=== PATIENT | female | born 1965 | race Caucasian/White ===

== ENCOUNTER → 2023-01-08 | Outpatient (CLI) | payer BC, SELFPAY ==
[2023-01-08 10:33] LABS: Absolute Lymphocyte Count 1.52 X10^3/uL (0.83-4.51); Basophil# 0.04 X10^3/uL; Eosinophil# 0.12 X10^3/uL; Eosinophils% 2.9 % (0-5); Hematocrit 42.6 % (37-47); Hemoglobin 14.1 g/dL (12.0-15.0); Lymphocyte # 1.52 X10^3/ul (0.83-4.51); Lymphocyte % 36.7 % (19-41); Mean Corp Hgb Conc 33.1 g/dL (32-36); Mean Corpuscular Hgb 32.4 pg (27.0-32.0); Mean Corpuscular Volume 97.9 fL (81-99); Monocyte# 0.42 X10^3/uL; Monocyte% 10.1 % (0-10); NRBC Flagged by Analyzer 0 % (0-5); Neutrophil # 2.03 X10^3/uL (2.7-7.7); Neutrophil % 49.1 % (47-70); Platelet Count 217 K/mm3 (150-450); RBC Distribution Width SD 43.6 fl (35.1-43.9); Red Blood Count 4.35 M/mm3 (4.2-5.4); White Blood Count 4.1 K/mm3 (4.4-11.0)
[2023-01-08 11:03] LABS: Vitamin D,25 Hydroxy 50.1 ng/mL
[2023-01-08 11:48] LABS: ALB/GLOB Ratio 1.1 RATIO (0.9-2.4); AST(SGOT) 20 U/L (15-37); Alanine Aminotransfer ALT/SGPT 25 U/L (13-56); Albumin, Serum 3.7 g/dL (3.2-5.0); Alkaline Phosphatase 74 U/L (45-117); Anion Gap 6 (5-15); BUN 12 mg/dL (7-18); BUN/Creat Ratio 15.5 RATIO (10-20); Chloride 109 mmol/L (98-107); Cholesterol 199 mg/dL (200); Creatinine, Serum 0.78 mg/dL (0.55-1.02); EST Glomerular Filtration Rate 81 mL/min (>60); Est Glom Filt Rate - Afr Amer 98 mL/min (>60); Globulin 3.4 g/dL (2.2-4.2); Glucose 88 mg/dL (74-106); High Density Lipoprotein 70 mg/dL; Magnesium 2.2 mg/dL (1.6-2.6); Potassium 3.9 mmol/L (3.5-5.1); Protein, Total 7.1 g/dL (6.4-8.2); Sodium Level 139 mmol/L (136-145); Thyroid Stim Hormone (TSH) 2.54 uIU/mL (0.358-3.74); Triglycerides 52 mg/dL; Very Low Density Lipoprotein 10 mg/dL (5-40)
== END | disposition home or self-care (01) ==
LOC: MFPLAB 08:10
PROVIDERS: PCP Family Medicine; Visit Provider Family Medicine
DX: I49.3 Ventricular premature depolarization (principal); I73.9 Peripheral vascular disease, unspecified; M85.80 Other specified disorders of bone density and structure, unspecified site
CPT/HCPCS: 36415; 80053; 80061; 82306; 83735; 84443; 85025

== ENCOUNTER → 2023-01-16 | Outpatient (CLI) | payer BC, SELFPAY ==
--- NOTE | 2023-01-16 08:50 | ART_ITS ---
Reason For Study: PVD Procedure A bilateral lower extremity continuous wave Doppler with analog waveform analysis,segmental pressures,and ankle brachial indexes without exercise. Left Segmental Pressures Left brachial= 117mmHg. Left posterior tibial artery = 141mmHg. Left dorsalis pedis artery = 140mmHg. The left posterior tibial artery waveforms are triphasic. The left dorsalis pedis waveforms are triphasic. Right Segmental Pressures Right brachial= 114mmHg. Right posterior tibial artery = 138mmHg. Right dorsalis pedis artery = 140mmHg. The right posterior tibial artery waveforms are triphasic. The right dorsalis pedis waveforms are triphasic. Indices The right resting ankle brachial index is 1.20. The right ankle brachial index by the posterior tibial artery is 1.18. The right ankle brachial index by the dorsalis pedis is 1.20. The left resting ankle brachial index is 1.21. The left ankle brachial index by the posterior tibial artery is 1.21. The left ankle brachial index by the dorsalis pedis is 1.20. VL/Lower Ext Art Exam w/o Exercis Interpretation Summary Right ALICJA 1.2, normal. Doppler/PVR waveforms of the right leg normal at rest. Left ALICJA 1.21, normal. Doppler/PVR waveforms of the left leg normal at rest. Ordering Physician: Mahnaz Maxwell Referring Physician: MAHNAZ MAXWELL MD Performed By: Meghan Guzman RVT, RDCS
== END | disposition home or self-care (01) ==
PROVIDERS: PCP Family Medicine; Referring Provider Family Medicine; Visit Provider Family Medicine
DX: I73.9 Peripheral vascular disease, unspecified (principal)
CPT/HCPCS: 93923

== ENCOUNTER → 2023-07-24 | Outpatient (CLI) | payer BC, SELFPAY ==
--- NOTE | 2023-07-24 09:41 | BI_ITS ---
MAMMOGRAPHY - BILATERAL SCREENING REASON FOR EXAM: Female, 58 years old. Routine annual screening examination. PERTINENT HISTORY: Non-contributory. TECHNIQUE: Digital bilateral breast tanesha (3D mammographic acquisition) in the CC and MLO projections. 2-D mediolateral oblique (MLO) and craniocaudad (CC) views of both breasts were obtained. CAD: Full Field Digital Mammography with Computer Added Detection was performed. COMPARISON: None. Baseline examination. FINDINGS: Breast Composition: There are scattered areas of fibroglandular density. There are no dominant masses or suspicious calcifications. Small benign appearing bilateral axillary nodes. No other significant abnormalities are identified. BI/SCRN MAMM (CAD)W/TANESHA BILAT IMPRESSION: Negative screening mammogram. Yearly followup mammogram recommended. (A) ASSESSMENT CATEGORY: BIRADS Category 2: Benign. A letter regarding these results will be sent to the patient by the facility within 30 days. Approximately 10% of breast cancers are not detected by mammography. A normal mammogram should not delay biopsy of a clinically suspicious abnormality. [id number] Electronically Signed: Han Alvarez MD at 10:37 EST ,
--- OUTSIDE RECORDS SUMMARY | 2023-07-24 10:18 | XMS RPT_ITS | CCD ---
Author Name Unknown Address [address] [place] [address] Organization [facility] Care Team Providers Care Box Feeder Name Role Phone Unavailable Primary Care Provider TOLU Clark Referring Unavailable TOLU IRAHETA Attending Unavailable Allergies Allergy Classification Reported Allergen(s) Allergy Type Date of Onset Reaction(s) Facility (3 sources) HMG-CoA reductase inhibitor; Translations: [[id number] REDUCTASE INHIBITORS] Drug Intolerance Myalgia [facility] Work Phone: Medications Current Medications Medication Drug Class(es) Dates Sig (Normalized) Sig (Original) nebivolol 2.5 mg oral tablet (3 sources) Start: 11-10-2022 End: 02-08-2023 take 1 tablet by mouth once daily nebivolol (BYSTOLIC) 2.5 mg tablet Take 1 tablet by mouth once daily. 90 tablet 3 11/10/2022 02/08/2023 Active Completed/Discontinued Medications Medication Drug Class(es) Dates Sig (Normalized) Sig (Original) calcium phosphate dibas/vit D3 (VITAMIN D, WITH CALCIUM, ORAL) (2 sources) calcium phosphat e dibas/vit D3 (VITAMIN D, WITH CALCIUM, ORAL) Take by mouth. 0 Active Problems Problem Classification Problem Date Documented Date Episodic/Chronic Cardiac dysrhythmias (3 sources) Multiple premature ventricular complexes; Translations: [Ventricular premature depolarization] Onset: 11-10-2022 Chronic Other screening for suspected conditions (not mental disorders or infectious disease) (4 sources) Patient encounter status; Translations: [Encounter for screening for cardiovascular disorders] Onset: 11-10-2022 Episodic Results Test Name Value Interpretation Reference Range Facil ity Vital Signs Date Time Vital Sign Value Performing Clinician Faci lity 11-10-2022 09:27-0400 Body height 167.6 cm Tolu Iraheta MD Work Phone: [facility] 11-10-2022 09:27040 Body weight 65.05 kg Tolu Iraheta MD Work Phone: [facility] 11-10-2022 09:27-0400 Diastolic blood pressure 70 mm[Hg] Tolu Iraheta MD Work Phone: [facility] 11-10-2022 09:27-0400 Systolic blood pressure 110 mm[Hg] Tolu Iraheta MD Work Phone: [facility] Encounters Encounter Date Encounter Type Care Provider Facility Start: 12-25-2022 Refill Tolu Iraheta MD Work Phone: Cardiology Plan of Treatment Date Care Activity Detail Author Start: 07-27-2022 DEPRESSION ASSESSMENT DEPRESSION ASSESSMENT [facility] Start: 12-21-2021 COVID-19 VACCINE (5 - Booster for Pfizer series) COVID-19 VACCINE (5 - Booster for Pfizer series) [facility] Start: 2013 SHINGRIX VACCINE (1 of 2) SHINGRIX VACCINE (1 of 2) [facility] Start: 2008 COLOGUARD (FIT-DNA) COLOGUARD (FIT-DNA) [facility] Start: 2008 Colonoscopy COLONOSCOPY [facility] Start: 2008 COLORECTAL CANCER SCREENING COLORECTAL CANCER SCREENING [facility] Start: [address] COLONOGRAPHY [facility] Start: 2008 DIABETES SCREEN DIABETES SCREEN [facility] Start: 2008 FECAL OCCULT BLOOD FECAL OCCULT BLOOD [facility] Start: 2008 LIPID SCREEN LIPID SCREEN [facility] Start: 2008 SIGMOIDOSCOPY SIGMOIDOSCOPY [facility] Start: 2003 Mammography MAMMOGRAM [facility] Start: 1993 HPV TESTING HPV TESTING [facility] Start: 1984 PAP TESTING PAP TESTING [facility] Start: 1982 Urine microalbumin profile DTAP,TDAP,TD (1 - Tdap) [facility] Start: 1981 HEPATITIS C SCREENING HEPATITIS C SCREENING [facility] Start: 1981 HIV SCREENING HIV SCREENING [facility] End: 11-06-2023 ECG COMPLETE ECG COMPLETE ECG Routine Screening for ischemic heart disease 1 Occurrences starting 11/05/2022 until 11/06/2023 [facility] Work Phone: Payers Date Payer Category Payer Unknown [employer] PPO OOS [id number] 2022-Present [phone] [address] [place] [address] PPO [id number] 2022 Unknown [id number] Social History Date Type Detail Facility Start: 11-10-2022 Tobacco smoking stat us [facility] Never smoked tobacco [facility] Start: 11-10-2022 Tobacco use and exposure Smoke less tobacco non-user [facility] Start: 11-10-2022 Alcohol intake Current drinke r of alcohol (finding) [facility] Start: 11-10-2022 Alcohol intake [facility] Start: 11-10-2022 Alcohol Comment 4 drinks/week [facility] Start: 1965 Sex Assigned At Not on file [facility] Note 01-01-2023 Telephone Encounter - Karla Pozo - 01/01/2023 11:09 AM EDTTelephone Encounter - Elda Cespedes Pss - 01/01/2023 10:41 AM EDTTelephone Encounter - Opal Moore LPN - 12/25/2022 2:42 PM EDT Note Date & Type Note Facility 01-01-2023 Miscellaneous Notes Formattin g of this note might be different from the original. Call to [facility]. They have refills on file from 11/10 rx that was escripted. They have it documented that she refilled 11/21 for 90 day supply. Left detailed voicemail to let pt know that refill available at [facility]. She is to contact pharmacy with any questions. Karla Pozo Patient calling to check status of medication below. Please advise and call patient. Patient's request for medication is as follows: Requested Prescriptions Refused Prescriptions Disp Refills nebivolol (BYSTOLIC) 2.5 mg tablet 90 tablet 3 Sig: Take 1 tablet by mouth once daily. Sent 11/10/2022 90 tabs 3 refills to [facility] pharmacy Prescription(s) as above. Please process accordingly. Opal Moore LPN documented in this encounter [facility] Progress note 11-10-2022 Note Date & Type Note Facility 11-10-2022 Note HNO ID: [id number] Author: Tolu Iraheta MD Service: ? Author Type: Physician Type: Progress Notes Filed: 11/10/2022 9:57 AM Note Text: Tolu Iraheta MD Interventional Cardiology [address] [address] [phone] Chief Complaint Patient presents with: New Patient HISTORY OF PRESENT ILLNESS: Ms. Lacy is a 57 year old female seen in my office today for assessment management of premature ventricular ectopics patient had prior history of palpitation for about 10 years she has extensive work-up with a stress test echo in [place] she moved in to [facility] patient had occasional feeling of premature ventricular ectopic she is not bothered with it she is able to carry on normal physical activity with no limitation EKG today shows premature ventricular ectopics Maintain on Bystolic for many years and responded well to the medication No angina No symptoms or signs of congestive heart failure Cardiac Risk Factors age (male over 45, female over 55), family history of CAD PAST MEDICAL HISTORY Diagnosis Date PVC (premature ventricular contraction) PAST SURGICAL HISTORY Procedure Laterality Date DELIVERY ONLY 1990 PAST SURGICAL HISTORY OF wisdom teeth PAST SURGICAL HISTORY OF surgery to remove scar tissue from tailbone at age 16 PAST SURGICAL HISTORY OF 2002 endometrial tumor removed PAST SURGICAL HISTORY OF Bilateral 2020 eye surgery TOTAL ABD HYSTERECTOMY+BLAD REPR 2006 FAMILY HISTORY Problem Relation Age of Onset Hypertension Mother other (TAVR) Mother Ischemic Heart Disease Father other (bypass) Father Hypertension Sister Hypertension Sister Hypertension Brother Alcohol abuse Brother Hypertension Brother Hypertension Brother Social History Tobacco Use Smoking status: Never Smokeless tobacco: Never Vaping Use Vaping Use: Never used Substance Use Topics Alcohol use: Yes Alcohol/week: 4.0 standard drinks Types: 4 Glasses of wine per week Comment: 4 drinks/week Drug use: Never ALLERGIES Allergen Reactions Ndzrxpl-Tqx-Ctf Red* Myalgia Medications: Current Outpatient Medications Medication Sig Dispense Refill ibuprofen (ADVIL) 200 mg tablet Take 200 mg by mouth every 6 hours as needed. Multivitamin capsule Take 1 capsule by mouth once daily. calcium phosphate dibas/vit D3 (VITAMIN D, WITH CALCIUM, ORAL) Take by mouth. Flaxseed Oil oil nebivolol (BYSTOLIC) 2.5 mg tablet Take 1 tablet by mouth once daily. 90 tablet 3 No current facility-administered medications for this visit. Review of Systems Constitutional: Negative for chills, diaphoresis, fever, malaise/fatigue and weight loss. HENT: Negative for congestion, ear discharge, ear pain, hearing loss, nosebleeds, sinus pain, sore throat and tinnitus. Eyes: Negative for blurred vision, double vision, photophobia, pain, discharge and redness. Respiratory: Negative for cough, hemoptysis, sputum production, shortness of breath, wheezing and stridor. Cardiovascular: Negative for chest pain, palpitations, orthopnea, claudication, leg swelling and PND. Gastrointestinal: Negative for abdominal pain, blood in stool, constipation, diarrhea, heartburn, melena, nausea and vomiting. Genitourinary: Negative for dysuria, flank pain, frequency, hematuria and urgency. Musculoskeletal: Negative for back pain, falls, joint pain, myalgias and neck pain. Skin: Negative for itching and rash. Neurological: Negative for dizziness, tingling, tremors, sensory change, speech change, focal weakness, seizures, loss of consciousness, weakness and headaches. Endo/Heme/Allergies: Negative for environmental allergies and polydipsia. Does not bruise/bleed easily. Psychiatric/Behavioral: Negative for depression, hallucinations, memory loss, substance abuse and suicidal ideas. The patient is not nervous/anxious and does not have insomnia. Physical Examination: Vitals:BP 110/70 Ht 5' 6 (1.68m) Wt 143 lb 6.4 oz (65.0kg) BMI 23.16 kg/(m2). BP w/Orthostatic Vitals Date and Time Orthostatic BP Orthostatic Pulse BP Pulse BP Position BP Site BP Cuff Size 11/10/22 0927 -- -- 110/70 -- -- -- -- Last 2 Encounter Wt Readings: Date: Wt: 11/10/2022 65 kg (143 lb 6.4 oz) Physical Exam Constitutional: General: She is not in acute distress. Appearance: She is not diaphoretic. HENT: Head: Normocephalic and atraumatic. Right Ear: External ear normal. Left Ear: External ear normal. Nose: Nose normal. Mouth/Throat: Pharynx: Oropharynx is clear. Eyes: General: Right eye: No discharge. Left eye: No discharge. Conjunctiva/sclera: Conjunctivae normal. Pupils: Pupils are equal, round, and reactive to light. Cardiovascular: Rate and Rhythm: Normal rate and regular rhythm. Heart sounds: Normal heart sounds, S1 normal and S2 normal. No murmur heard. No friction rub. No gallop. No S3 or S4 sounds. Pu (more content not included)... [facility] History of Present illness Narrative 11-10-2022 Tolu Iraheta MD - 11/10/2022 9:53 AM EDT Note Date & Type Note Facility 11-10-2022 History of Presen t illness Narrative Images from the original note were not included. Tlou Iraheta MD Interventional Cardiology [facility] [address], [place] [address] [phone] Chief Complaint Patient presents with: New Patient HISTORY OF PRESENT ILLNESS: Ms. Lacy is a 57 year old female seen in my office today for assessment management of premature ventricular ectopics patient had prior history of palpitation for about 10 years she has extensive work-up with a stress test echo in [place] she moved in to [facility] patient had occasional feeling of premature ventricular ectopic she is not bothered with it she is able to carry on normal physical activity with no limitation EKG today shows premature ventricular ectopics Maintain on Bystolic for many years and responded well to the medication No angina No symptoms or signs of congestive heart failure Cardiac Risk Factors age (male over 45, female over 55), family history of CAD PAST MEDICAL HISTORY Diagnosis Date PVC (premature ventricular contraction) PAST SURGICAL HISTORY Procedure Laterality Date DELIVERY ONLY 1990 PAST SURGICAL HISTORY OF wisdom teeth PAST SURGICAL HISTORY OF surgery to remove scar tissue from tailbone at age 16 PAST SURGICAL HISTORY OF 2002 endometrial tumor removed PAST SURGICAL HISTORY OF Bilateral 2020 eye surgery TOTAL ABD HYSTERECTOMY+BLAD REPR 2006 FAMILY HISTORY Problem Relation Age of Onset Hypertension Mother other (TAVR) Mother Ischemic Heart Disease Father other (bypass) Father Hypertension Sister Hypertension Sister Hypertension Brother Alcohol abuse Brother Hypertension Brother Hypertension Brother Social History Tobacco Use Smoking status: Never Smokeless tobacco: Never Vaping Use Vaping Use: Never used Substance Use Topics Alcohol use: Yes Alcohol/week: 4.0 standard drinks Types: 4 Glasses of wine per week Comment: 4 drinks/week Drug use: Never ALLERGIES Allergen Reactions Ejpdgij-Ggz-Poj Red* Myalgia Medications: Current Outpatient Medications Medication Sig Dispense Refill ibuprofen (ADVIL) 200 mg tablet Take 200 mg by mouth every 6 hours as needed. Multivitamin capsule Take 1 capsule by mouth once daily. calcium phosphate dibas/vit D3 (VITAMIN D, WITH CALCIUM, ORAL) Take by mouth. Flaxseed Oil oil nebivolol (BYSTOLIC) 2.5 mg tablet Take 1 tablet by mouth once daily. 90 tablet 3 No current facility-administered medications for this visit. Review of Systems Constitutional: Negative for chills, diaphoresis, fever, malaise/fatigue and weight loss. HENT: Negative for congestion, ear discharge, ear pain, hearing loss, nosebleeds, sinus pain, sore throat and tinnitus. Eyes: Negative for blurred vision, double vision, photophobia, pain, discharge and redness. Respiratory: Negative for cough, hemoptysis, sputum production, shortness of breath, wheezing and stridor. Cardiovascular: Negative for chest pain, palpitations, orthopnea, claudication, leg swelling and PND. Gastrointestinal: Negative for abdominal pain, blood in stool, constipation, diarrhea, heartburn, melena, nausea and vomiting. Genitourinary: Negative for dysuria, flank pain, frequency, hematuria and urgency. Musculoskeletal: Negative for back pain, falls, joint pain, myalgias and neck pain. Skin: Negative for itching and rash. Neurological: Negative for dizziness, tingling, tremors, sensory change, speech change, focal weakness, seizures, loss of consciousness, weakness and headaches. Endo/Heme/Allergies: Negative for environmental allergies and polydipsia. Does not bruise/bleed easily. Psychiatric/Behavioral: Negative for depression, hallucinations, memory loss, substance abuse and suicidal ideas. The patient is not nervous/anxious and does not have insomnia. Physical Examination: Vitals:BP 110/70 Ht 5' 6 (1.68m) Wt 143 lb 6.4 oz (65.0kg) BMI 23.16 kg/(m^2). BP w/Orthostatic Vitals Date and Time Orthostatic BP Orthostatic Pulse BP Pulse BP Position BP Site BP Cuff Size 11/10/22 0927 -- -- 110/70 -- -- -- -- Last 2 Encounter Wt Readings: Date: Wt: 11/10/2022 65 kg (143 lb 6.4 oz) Physical Exam Constitutional: General: She is not in acute distress. Appearance: She is not diaphoretic. HENT: Head: Normocephalic and atraumatic. Right Ear: External ear normal. Left Ear: External ear normal. Nose: Nose normal. Mouth/Throat: Pharynx: Oropharynx is clear. Eyes: General: Right eye: No discharge. Left eye: No discharge. Conjunctiva/sclera: Conjunctivae normal. Pupils: Pupils are equal, round, and reactive to light. Cardiovascular: Rate and Rhythm: Normal rate and regular rhythm. Heart sounds: Normal heart sounds, S1 normal and S2 normal. No murmur heard. No friction rub. No gallop. No S3 or S4 sounds. Pulmonary: Effort: Pulmonary effort is normal. No respiratory distress. Breath sounds: Normal breath sounds. No wheezing or rales. Chest: Chest wall: No tenderness. Musculoskeletal: General: Normal range of motion. Cervical back: Normal range of motion and neck supple. Skin: General: Skin is warm and dry. Neurological: Mental Status: She is alert and oriented to person, place, and time. Psychiatric: Mood and Affect: Mood normal. Thought Content: Thought content normal. Pertinent Labs: CBC: No results found for: HB, HCT, WBC, PLT BMP: No results found for: GLUC, K, NA, CHLOR, CO2, CREAT, BUN, ANION, CA INR: Lipid Profile: No results found for: CHOL, HDL, LDL, TG Hemoglobin A1C: No results found for: HGBA1C TSH: No results found for: TSHREFL Prior Cardiac Testing ekg Assessment and Plan: 57 years old female patient with premature ventricular ectopics Premature ventricular ectopic Controlled with beta-blockers Continue beta-stephen 2. Hyperlipidemia Need lipid profile Patient had severe myalgia with Crestor's in the past Follow up planning: One year Electronically signed by Tolu Iraheta MD on November 10, 2022, 9:54 AM The above note was partially created using a dictation recognition software. A reasonable attempt has been made to correct any errors. documented in this encounter [facility] Evaluation note Note Date & Type Note Facility documented in this encounter [facility] Reason for referral (narrative) Outpatient Procedure (Routine) - Closed Note Date & Type Note Facility Referral ID Status Reason Start Date Expiration Date V isits Requested Visits Authorized [id number] Closed Auto-Generate d Referral 11/05/2022 07/26/2023 1 1 [facility] Summary Purpose Family History No Family History Records Found Advance Directives No Advanced Directives Records Found Additional Source Comments Source Comments (unrecognize d section and content) In the event this informatio n is protected by the Federal Confidentiality of Alcohol and Drug Abuse Patient Records regulations: The Federal rules restrict any use of the information to criminally investigate or prosecute any alcohol or drug abuse patient.[facility] the event this information is protected by the Federal Confidentiality of Alcohol and Drug Abuse Patient Records regulations: The Federal rules restrict any use of the information to criminally investigate or prosecute any alcohol or drug abuse patient.[facility] Reason for Visit (unrecogniz ed section and content) Reason Onset Date Comments Refill Request 12/25/2022 Refill Request 01/01/2023 INFORMATION SOURCE (unrecogn ized section and content) FOR RECORDS PERTAINING TO PATIENTS WHO ARE OR HAVE BEEN ENROLLED IN A CHEMICAL DEPENDENCY/SUBSTANCEABUSE PROGRAM, SOME INFORMATION MAY BE OMITTED. This clinical summary was aggregated from multiple sources. Caution should be exercised in using it in the provision of clinical care. This summary normalizes information from multiple sources, and as a consequence, information in this document may materially change the coding, format and clinical context of patient data. In addition, data may be omitted in some cases. CLINICAL DECISIONS SHOULD BE BASED ON THE PRIMARY CLINICAL RECORDS. [employer] provides no warranty or guarantee of the accuracy or completeness of information in this document.
== END | disposition home or self-care (01) ==
LOC: OPBI 09:40
PROVIDERS: PCP Family Medicine; Referring Provider Nurse Practitioner Family; Visit Provider Nurse Practitioner Family
DX: Z12.31 Encounter for screening mammogram for malignant neoplasm of breast (principal)
CPT/HCPCS: 77063; 77067

== ENCOUNTER → 2024-08-03 | Outpatient (CLI) | payer BC, SELFPAY ==
[2024-08-03 18:10] LABS: Absolute Lymphocyte Count 1.73 X10^3/uL (0.83-4.51); Absolute Neutrophil Count 3.7 X10^3/uL (2.0-7.7); Basophil# 0.05 X10^3/uL; Basophil% 0.8 % (0-1); Eosinophil# 0.09 X10^3/uL; Eosinophils% 1.5 % (0-5); Hematocrit 40.3 % (37-47); Hemoglobin 13.9 g/dL (12.0-15.0); Lymphocyte # 1.73 X10^3/ul (0.83-4.51); Lymphocyte % 28.8 % (19-41); Mean Corp Hgb Conc 34.5 g/dL (32-36); Mean Corpuscular Hgb 31.8 pg (27.0-32.0); Mean Corpuscular Volume 92.2 fL (81-99); Mean Platelet Vol. 9.9 fl (6.2-12.0); Monocyte# 0.47 X10^3/uL; Monocyte% 7.8 % (0-10); NRBC Flagged by Analyzer 0 % (0-5); Neutrophil # 3.66 X10^3/uL (2.7-7.7); Neutrophil % 60.9 % (47-70); Platelet Count 211 K/mm3 (150-450); RBC Distribution Width CV 12.2 % (11.6-14.6); RBC Distribution Width SD 41.2 fl (35.1-43.9); Red Blood Count 4.37 M/mm3 (4.2-5.4)
[2024-08-03 18:41] LABS: ALB/GLOB Ratio 1.2 RATIO (0.9-2.4); AST(SGOT) 27 U/L (15-37); Alanine Aminotransfer ALT/SGPT 26 U/L (13-56); Alkaline Phosphatase 72 U/L (45-117); Anion Gap 7 (5-15); BUN 13 mg/dL (7-18); BUN/Creat Ratio 16.9 RATIO (10-20); Calcium,Total 9.6 mg/dL (8.5-10.1); Chloride 103 mmol/L (98-107); Cholesterol 215 mg/dL (200); Creatinine, Serum 0.77 mg/dL (0.55-1.02); EST Glomerular Filtration Rate 81 mL/min (>60); Est Glom Filt Rate - Afr Amer 98 mL/min (>60); Globulin 3.3 g/dL (2.2-4.2); Glucose 81 mg/dL (74-106); High Density Lipoprotein 72 mg/dL; Magnesium 2.3 mg/dL (1.6-2.6); Potassium 3.7 mmol/L (3.5-5.1); Protein, Total 7.3 g/dL (6.4-8.2); Sodium Level 138 mmol/L (136-145); Triglycerides 83 mg/dL; Very Low Density Lipoprotein 17 mg/dL (5-40)
== END | disposition home or self-care (01) ==
LOC: MFPLAB 14:58
PROVIDERS: PCP Family Medicine; Referring Provider Family Medicine; Visit Provider Family Medicine
DX: I49.3 Ventricular premature depolarization (principal); M85.80 Other specified disorders of bone density and structure, unspecified site
CPT/HCPCS: 36415; 80053; 80061; 82306; 83735; 84443; 85025

== ENCOUNTER → 2024-09-06 | Outpatient (CLI) | payer BC, SELFPAY ==
--- NOTE | 2024-09-06 15:51 | BI_ITS ---
PROCEDURE: SCRN MAMM (CAD)W/TANESHA BILAT REASON FOR EXAM: F, Age 59 y/o, routine annual mammogram. No family history. TECHNIQUE: Bilateral screening digital breast tomosynthesis with 2D and 3D images. Computer aided detection. COMPARISON: Prior exam(s) dating back to July 24, 2023.. FINDINGS: There are scattered areas of fibroglandular density. Stable examination. No suspicious masses, areas of developing architectural distortion, or suspicious calcifications. BI/SCRN MAMM (CAD)W/TANESHA BILAT IMPRESSION: BI-RADS 1: NEGATIVE. RECOMMEND ANNUAL MAMMOGRAPHIC SCREENING. Follow-up code: Routine Follow-up The patient will be notified of the results by letter. Reading Location: [place] [address]
--- NOTE | 2024-09-06 16:05 | BD_ITS ---
PROCEDURE: DEXA BONE DENSITY STUDY REASON FOR EXAM: F, age 59 y/o . Postmenopausal. TECHNIQUE: DEXA scan of the lumbar spine and both hips. COMPARISON: None. FINDINGS: Lumbar Spine (L1-L4): g/cm2 (0.854)/T-score (-2.2)/Z-score (-0.7) findings are suggestive of osteopenia with a high fracture risk. Left Femur Total: g/cm2 (0.690)/T-score (-2.1)/Z-score (-1.0) Left Femoral Neck: g/cm2 (0.673)/T-score (-1.6)/Z-score (-0.2) Right Femur Total: g/cm2 (0.703)/T-score (-2.0)/Z-score (-0.9) Right Femoral Neck: g/cm2 (0.666)/T-score (-1.6)/Z-score (-0.3) BD/Dexa Bone Density Study IMPRESSION: The patient is considered osteopenic as outlined below according to World Darrel Organization (WHO) criteria with a high fracture risk. Reading Location: [place] [address]
== END | disposition home or self-care (01) ==
LOC: OPBD 15:50
PROVIDERS: PCP Family Medicine; Referring Provider Family Medicine; Visit Provider Family Medicine
DX: Z12.31 Encounter for screening mammogram for malignant neoplasm of breast (principal); Z78.0 Asymptomatic menopausal state; M85.80 Other specified disorders of bone density and structure, unspecified site
CPT/HCPCS: 77063; 77067; 77080